=== PATIENT | female | born 1930 | race African-American/Black ===

== ENCOUNTER 2016-11-13 22:57 | Observation (INO) | payer OTHER ==
[~2016-11-13] VITALS: Ht 167.6 cm; Wt 48.1 kg
[2016-11-13 23:51] LABS: BASOPHILS % 0.1 % (0.0-2.0); EOSINOPHILS % 0.1 % (0.0-5.0); HEMATOCRIT. 36.5 % (36.0-48.0); HEMOGLOBIN. 12.1 g/dL (12.0-16.0); LYMPHOCYTES % 12.3 % (20.0-50.0); MEAN CORPUSCULAR HEMOGLOBIN 32.5 pg (28.0-32.0); MEAN CORPUSCULAR VOLUME 98.4 fL (81.0-99.0); MEAN PLATELET VOLUME 8.4 fl (7.4-10.4); MONOCYTES % 11.4 % (2.0-8.0); NEUTROPHILS % 76.1 % (40.0-76.0); PLATELET 265 x1000/uL (130-400); RED BLOOD CELL COUNT 3.71 mill/uL (4.2-5.4); RED CELL DISTRIBUTION WIDTH 16.4 % (11.6-14.6)
[2016-11-13 23:57] LABS: INR 1.1; PARTIAL THROMBOPLASTIN TIME 28.5 sec (23.4-31.0); PROTHROMBIN TIME 10.9 sec (9.4-11.6)
[2016-11-14] VITALS (7 sets, daily range): BP systolic 101–145; BP diastolic 43–61
[2016-11-14 00:07] LABS: CARBON DIOXIDE 28 mEq/L (21-32); CHLORIDE 102 mEq/L (98-107); ETHANOL BLOOD < 10 mg/dL; TROPONIN I < 0.02 ng/mL (0.00-0.04)
[2016-11-14 00:43] LABS: CLARITY URINE CLEAR (CLEAR); COLOR URINE YELLOW (YELLOW); GLUCOSE URINE NEGATIVE (NEGATIVE); KETONES URINE NEGATIVE (NEGATIVE); LEUKOCYTE ESTERASE URINE TRACE (NEGATIVE); NITRITE URINE NEGATIVE (NEGATIVE); OCCULT BLOOD URINE NEGATIVE (NEGATIVE); PH URINE 5.5 (4.5-8.0); PROTEIN URINE NEGATIVE (NEGATIVE); SPECIFIC GRAVITY URINE 1.014 (1.005-1.030)
[2016-11-14 00:57] LABS: *AMPHETAMINES SCREEN URINE NEGATIVE (NEGATIVE); *BARBITURATES SCREEN URINE NEGATIVE (NEGATIVE); *BENZODIAZEPINES SCREEN URINE NEGATIVE (NEGATIVE); *COCAINE SCREEN URINE NEGATIVE (NEGATIVE); CANNABINOID URINE SCREEN NEGATIVE (NEGATIVE); METHADONE URINE SCREEN NEGATIVE (NEGATIVE); OPIATES URINE SCREEN NEGATIVE (NEGATIVE); PHENCYCLIDINE URINE SCREEN NEGATIVE (NEGATIVE)
[2016-11-14] MEDS ORDERED: MIRT15TA6 PO (09:46)
[2016-11-14] MEDS ORDERED: PROP80CA2 PO (09:47)
[2016-11-14] MEDS ORDERED: DORZ10DR9 EACHEYE (09:48)
[2016-11-14] MEDS ORDERED: MEMA10TA2 PO (09:48)
[2016-11-14] MEDS ORDERED: BRIM15DR2 EACHEYE (09:49)
[2016-11-14] MEDS ORDERED: [UNRECOGNIZED DRUG - OTHER] EACHEYE (09:50)
[2016-11-14] MEDS ORDERED: CLONIDINE 0.1MG TABLET PO PRN (10:00)
[2016-11-14] MEDS ORDERED: ASPIRIN 81MG TABLET PO SCH (10:30)
[2016-11-14 11:43] LABS: HEMATOCRIT 39.2 % (36.0-48.0); MEAN CORPUSCULAR HEMOGLOBIN 32.7 pg (28.0-32.0); MEAN CORPUSCULAR VOLUME 98.4 fL (81.0-99.0); PLATELET 291 x1000/uL (130-400); RED BLOOD CELL COUNT 3.99 mill/uL (4.2-5.4); RED CELL DISTRIBUTION WIDTH 16.4 % (11.6-14.6)
[2016-11-14 11:48] LABS: CARBON DIOXIDE 28 mEq/L (21-32); CHLORIDE 104 mEq/L (98-107)
[2016-11-14] MEDS ORDERED: ADENOSINE 3 MG/ML 2ML VIAL IV NR (12:30)
[2016-11-14] MEDS ORDERED: METOPROLOL TARTRATE 50MG TABLET PO SCH ×2 (21:00)
[2016-11-15 00:36] VITALS: BP 102/42
== END 2016-11-15 03:05 | disposition short-term general hospital (02) ==
LOC: ER 22:57 → 7WST 11-14 01:34 → INTOOBSV 11-14 01:34 → ENRESERV 11-14 07:56
PROVIDERS: ADMIT Hospitalist; ATTEND Hospitalist
DX: R53.1 Weakness (principal); R42 Dizziness and giddiness; I11.9 Hypertensive heart disease without heart failure; F03.90 Unspecified dementia, unspecified severity, without behavioral disturbance, psychotic disturbance, mood disturbance, and anxiety; R00.1 Bradycardia, unspecified; I44.0 Atrioventricular block, first degree; I25.10 Atherosclerotic heart disease of native coronary artery without angina pectoris; I25.2 Old myocardial infarction; D72.829 Elevated white blood cell count, unspecified; E46 Unspecified protein-calorie malnutrition; H40.9 Unspecified glaucoma; H54.8 Legal blindness, as defined in USA; Z79.82 Long term (current) use of aspirin; Z82.49 Family history of ischemic heart disease and other diseases of the circulatory system; Z86.73 Personal history of transient ischemic attack (TIA), and cerebral infarction without residual deficits; Z87.891 Personal history of nicotine dependence; Z98.61 Coronary angioplasty status
CPT/HCPCS: 36415; 70450; 71010; 80053; 80305; 81001; 82962; 83605; 83690; 83735; 83880; 84443; 84484; 85025; 85027; 85610; 85730; 93005; 93306; 93880; 99285; A6261; G0378; G0482; J0153; A4315